=== PATIENT | female | born 1980 | race Caucasian/White ===

== ENCOUNTER → 2022-10-14 18:10 | Outpatient (CLI) | payer OTHER, SELFPAY ==
[2022-10-14 14:36] LABS: Basophils # 0.1 K/mm3 (0-0.2); Basophils % 0.7 % (0.1-2.0); Eosinophils # 0.1 K/mm3 (0.0-0.4); Eosinophils % 1.5 % (0.1-12.0); Hematocrit 38.5 % (37.0-47.0); Hemoglobin 12.3 g/dL (12.2-16.2); Lymphocytes # 2.3 K/mm3 (0.7-4.5); Lymphocytes % 26.6 % (10-50); Mean Corpuscular HGB Conc 31.9 g/dL (31.8-35.4); Mean Corpuscular Hemoglobin 23.5 pg (27.0-31.2); Mean Corpuscular Volume 73.7 fl (81-99); Mean Platelet Volume 8.4 fl (7.4-10.4); Monocytes # 0.4 K/mm3 (0.1-1.0); Neutrophils # 5.8 K/mm3 (1.8-7.8); Neutrophils % 66.2 % (37.0-80.0); Platelet Count 306 K/mm3 (142-424); Red Blood Count 5.23 M/mm3 (4.20-5.40); Red Cell Distribution Width 16.5 % (11.5-17.5); White Blood Count 8.8 K/mm3 (4.8-10.8)
[2022-10-14 14:58] LABS: Chloride 108 mmol/L (98-107); Potassium 4.4 mmoL/L (3.5-5.1); Sodium 140 mmol/L (136-145)
[2022-10-14 15:00] LABS: Blood Urea Nitrogen 10 mg/dl (7-17); Estimated Glomerular Filt Rate 135 ml/min (>60); GFR (African American) 163 ML/MIN (>60)
[2022-10-14 15:01] LABS: Alanine Aminotransferase 21 U/L (12-78); Albumin Level 4.6 g/dl (3.5-5.0); Albumin/Globulin Ratio 1.6 (1.1-1.8); Alkaline Phosphatase 64 U/L (38-126); Anion Gap 10.4 mEq/L (5-15); Aspartate Amino Transferase 22 U/L (14-36); Bilirubin,Total 0.4 mg/dl (0.2-1.3); Carbon Dioxide 26 mmol/L (22.0-30.0); Chol/HDL Ratio 3.6 (1-3.5); Cholesterol 186 mg/dl (140-200); Globulin 2.8 g/dL (1.3-3.2); Glucose 97 mg/dl (74-100); HDL Cholesterol 52 mg/dl (40-60); Total Protein,Serum 7.4 g/dl (6.3-8.2); Triglycerides 199 mg/dl (30-150); VLDL Cholesterol 40 mg/dL (0-40)
[2022-10-14 15:12] LABS: Direct LDL Cholesterol 98.16 mg/dL (100-129)
[2022-10-14 15:30] LABS: Thyroid Stimulating Hormone 2.43 uIU/mL (0.465-4.68)
[2022-10-14 18:35] LABS: Hemoglobin A1C 7.1 % (4.0-6.0)
[2022-10-14 23:16] LABS: Iron 45 ug/dL (37-170)
[2022-10-14 23:25] LABS: Total Iron Binding Capacity 464 ug/dL (265-497)
[2022-10-14 23:53] LABS: Ferritin 7.34 ng/ml (6.24-137)
== END ==
PROVIDERS: PCP Physician Assistant; Visit Provider Physician Assistant
DX: R73.03 Prediabetes (principal); D64.9 Anemia, unspecified; E55.9 Vitamin D deficiency, unspecified
CPT/HCPCS: 80053; 80061; 82306; 82728; 83036; 83540; 83550; 84443; 85025

== ENCOUNTER → 2022-10-28 15:25 | Outpatient (CLI) | payer OTHER, SELFPAY ==
--- NOTE | 2022-10-28 15:25 | MM_ITS ---
PROCEDURE INFORMATION: Exam: MG Bilateral Screening 3D Mammography Exam date and time: 10/28/2022 3:37 PM Age: 42 years old Clinical indication: Screening. Paternal aunt had breast cancer. TECHNIQUE: Imaging protocol: Bilateral Screening tomosynthesis and 2D mammography including computer-aided detection (CAD) when performed. COMPARISON: No relevant prior studies available. If prior mammograms are provided, I am happy to add an addendum. FINDINGS: MAMMOGRAPHY: Breast composition: There are scattered areas of fibroglandular density. Mass: None. Architectural distortion: None. Calcifications: No suspicious calcifications. Asymmetric density: None. Skin thickening: None. Axillary adenopathy: None. IMPRESSION: No mammographic evidence of malignancy. Annual screening is recommended unless otherwise clinically indicated. ASSESSMENT: BI-RADS Category 1: Negative
--- NOTE | 2022-10-28 16:05 | MR_ITS ---
PROCEDURE INFORMATION: Exam: MR Head Without Contrast Exam date and time: 10/28/2022 4:22 PM Age: 42 years old Clinical indication: Pain; Headache; Prior surgery; Surgery date: 6+ months; Additional info: Scalp lesion, history brain tumor. Tender to touch on left occipital side of head. Headache TECHNIQUE: Imaging protocol: Magnetic resonance imaging of the head without contrast. COMPARISON: No relevant prior studies available. 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 The frontal horns are up turned Pituitary gland and sella: Orbits, sellar/parasellar structures and cervicomedullary junction are unremarkable. Bones/joints: Unremarkable. Paranasal sinuses: Scattered mucosal thickening throughout the paranasal sinuses. Mastoid air cells: Normal as visualized. No mastoid effusion. Orbital cavities: Unremarkable. Vasculature: Flow voids of the major vascular structures are intact. Soft tissues: Unremarkable. IMPRESSION: 1. Findings consistent with corpus callosum agenesis 2. No acute intraparenchymal hemorrhage, territorial infarct or mass lesion 3. Infectious/inflammatory sinusitis.
== END ==
PROVIDERS: PCP Physician Assistant; Visit Provider Physician Assistant
DX: Z12.31 Encounter for screening mammogram for malignant neoplasm of breast (principal); R73.03 Prediabetes; L98.9 Disorder of the skin and subcutaneous tissue, unspecified; Z86.011 Personal history of benign neoplasm of the brain
CPT/HCPCS: 70551; 77063; 77067

== ENCOUNTER → 2023-01-26 19:26 | Outpatient (CLI) | payer OTHER, SELFPAY ==
[2023-01-26 20:18] LABS: Basophils % 0.3 % (0.1-2.0); Eosinophils # 0.2 K/mm3 (0.0-0.4); Eosinophils % 1.7 % (0.1-12.0); Hematocrit 39.4 % (37.0-47.0); Hemoglobin 12.9 g/dL (12.2-16.2); Lymphocytes % 32.1 % (10-50); Mean Corpuscular HGB Conc 32.8 g/dL (31.8-35.4); Mean Corpuscular Hemoglobin 27.4 pg (27.0-31.2); Mean Corpuscular Volume 83.5 fl (81-99); Mean Platelet Volume 8.8 fl (7.4-10.4); Monocytes # 0.6 K/mm3 (0.1-1.0); Monocytes % 6.1 % (1.7-9.3); Neutrophils # 5.5 K/mm3 (1.8-7.8); Neutrophils % 59.7 % (37.0-80.0); Platelet Count 299 K/mm3 (142-424); Red Blood Count 4.72 M/mm3 (4.20-5.40); Red Cell Distribution Width 14.7 % (11.5-17.5); White Blood Count 9.2 K/mm3 (4.8-10.8)
[2023-01-26 21:54] LABS: Alanine Aminotransferase 24 U/L (12-78); Albumin Level 4.5 g/dl (3.5-5.0); Albumin/Globulin Ratio 1.7 (1.1-1.8); Alkaline Phosphatase 59 U/L (38-126); Anion Gap 16.8 mEq/L (5-15); Aspartate Amino Transferase 27 U/L (14-36); Bilirubin,Total 0.3 mg/dl (0.2-1.3); Blood Urea Nitrogen 13 mg/dl (7-17); Calcium 9.3 mg/dl (8.4-10.2); Carbon Dioxide 27 mmol/L (22.0-30.0); Chloride 98 mmol/L (98-107); Estimated Glomerular Filt Rate 109 ml/min (>60); GFR (African American) 132 ML/MIN (>60); Globulin 2.6 g/dL (1.3-3.2); Glucose 87 mg/dl (74-100); Potassium 3.8 mmoL/L (3.5-5.1); Sodium 138 mmol/L (136-145); Total Protein,Serum 7.1 g/dl (6.3-8.2)
[2023-01-26 22:15] LABS: 25-OH Vitamin D, Total 53.9 ng/mL (30-100)
[2023-01-26 22:26] LABS: Thyroid Stimulating Hormone 2.37 uIU/mL (0.465-4.68)
[2023-01-26 22:32] LABS: Iron 184 ug/dL (37-170)
[2023-01-26 22:45] LABS: Vitamin B12 332 pg/mL (239-931)
[2023-01-26 22:53] LABS: Total Iron Binding Capacity 398 ug/dL (265-497)
[2023-01-26 23:10] LABS: Ferritin 13.1 ng/ml (6.24-137)
[2023-01-28 15:04] LABS: FSH 4.6 mIU/mL (.); LH 15.2 mIU/mL (.); Progesterone 3.4 ng/mL (.); Testosterone,Total 7 ng/dL (4-50)
[2023-02-03 21:59] LABS: Estrogen 220 pg/mL (.)
== END ==
PROVIDERS: PCP Physician Assistant; Visit Provider Physician Assistant
DX: R87.1 Abnormal level of hormones in specimens from female genital organs (principal)
CPT/HCPCS: 80053; 82306; 82607; 82672; 82728; 83001; 83002; 83036; 83540; 83550; 84144; 84403; 84443; 85025

== ENCOUNTER → 2023-04-15 13:47 | Outpatient (CLI) | payer OTHER, SELFPAY ==
--- NOTE | 2023-04-15 13:52 | XR_ITS ---
FINAL REPORT CLINICAL HISTORY: Rt shoulder pain COMPARISON: None FINDINGS: RIGHT SHOULDER Three views demonstrate no acute fracture or dislocation. There is mild acromioclavicular degenerative change. The visualized bony structures are well aligned. No soft tissue abnormality is seen. IMPRESSION: No acute process. Reviewed, Interpreted and Dictated by Fredy Schafer III, MD Transcribed by Cindy Bustos Authenticated and [facility]
== END ==
PROVIDERS: PCP Physician Assistant; Visit Provider Orthopaedic Surgery
DX: M25.511 Pain in right shoulder (principal)
CPT/HCPCS: 73030